=== PATIENT | female | born 1975 | race Caucasian/White ===

== ENCOUNTER 2016-10-20 18:35 | Emergency (ER) | payer OTHER ==
[2016-10-20 18:56] VITALS: BP 111/72
--- NOTE | 2016-10-20 19:21 | UC ---
Cardiac HPI - HPI Summary HPI Summary: The patient comes in today for: 1. Right chest and back pain: Onset: 2 days. Palliative/provocative: Nothing makes it better or worse (position, breathing-- all did not affect it). Movement of the neck and shoulder makes it worse. Quality: Sharp and tight at times. Region: Right upper chest and back. Severity: 3/10 at rest. 5/10 with movement. It was 8/10 with rest. Time: Constant. Associated symptoms: Previous treatment: She took 5 OTC Aleve over the time of 10 hour period. No help. Bleeding problems: No history of bleeding problems in her or her family. No injury. She complains of "a little bit" of shortness of breath. No fever or hemoptysis. Previous disease: She has not had this before. She states that she had a constellation of symptoms that were written up for "stress." She saw multiple specialists who did not find anything for her. Xanax finally made her feel better. Previous heart disease: None. * - History of Current Complaint Chief Complaint: UCGeneralIllness Stated Complaint: RIGHT SHOULDER/CHEST Time Seen by Provider: 10/20/16 18:57 Hx Obtained From: Patient - Allergy/Home Medications Allergies/Adverse Reactions: Allergies Allergy/AdvReac Type Severity Reaction Status Date / Time Sulfa Antibiotics Allergy Nausea Verified 10/20/16 18:45 Home Medications: Home Medications Diphenhydramine HCl (Sleep) [Zzzquil] 25 mg PO BEDTIME 10/20/16 [History Confirmed 10/20/16] lamoTRIgine TAB(*) [Lamictal TAB(*)] 200 mg PO BEDTIME 10/20/16 [History Confirmed 10/20/16] PMH/Surg Hx/FS Hx/Imm Hx Previously Healthy: No - All diagnosis below (-) for her except as listed. Psychological History: Anxiety, Bipolar Disorder Other History Of: Negative For: HIV, Hepatitis B, Hepatitis C, Anticoagulant Therapy - Surgical History Surgical History: None - Family History Known Family History: Negative: Cardiac Disease, Hypertension - Social History Occupation: Employed Full-time Alcohol Use: None Substance Use Type: None Smoking Status (MU): Never Smoked Tobacco - Immunization History Most Recent Influenza Vaccination: NONE Most Recent Tetanus Shot: UTD Review of Systems Constitutional: Negative Skin: Negative Eyes: Negative ENT: Negative Respiratory: Negative Cardiovascular: Chest Pain Gastrointestinal: Negative Genitourinary: Negative Motor: Negative All Other Systems Reviewed And Are Negative: Yes Physical Exam Triage Information Reviewed: Yes Appearance: Well-Appearing, No Pain Distress, Well-Nourished Vital Signs: Initial Vital Signs Temp 99 F 10/20/16 18:47 Pulse 74 10/20/16 18:47 Resp 16 10/20/16 18:47 BP 111/72 10/20/16 18:47 Pulse Ox 99 10/20/16 18:47 Vital Signs Reviewed: Yes Eyes: Positive: Conjunctiva Clear. Negative: Discharge ENT: Positive: Hearing grossly normal. Negative: Pharyngeal erythema, Nasal congestion, Nasal drainage, TM bulging, TM dull, TM red, Tonsillar swelling, Tonsillar exudate Dental: Negative: Gross Decay/Caries @, Dental Fracture @ Neck: Positive: Supple, Nontender, No Lymphadenopathy. Negative: Nuchal Rigidity, Other: - She has reproduction of her posterior/chest pain with neck extension, and turning her head to the right and flexing to the right. There was no marked tenderness to palpation of the right neck musculature. Respiratory: Positive: Chest non-tender, Lungs clear, No respiratory distress, No accessory muscle use. Negative: Crackles, Wheezing Cardiovascular: Positive: RRR, No Murmur Abdomen Description: Positive: Nontender, No Organomegaly, Soft. Negative: Guarding Musculoskeletal: Positive: Strength Intact, ROM Intact, Other: - The patient had also tenderness to palpation of the medial right scapular border which reproduced her chest/posterior pain. Neurological: Positive: Alert, Muscle Tone Normal Psychological: Positive: Age Appropriate Behavior, Consolable Skin: Positive: rashes, breakdown - Assessment/Plan Course Of Treatment: Patient was told that she had right chest/posterior upper back pain related to muscle inflammation. We will start treatment, but she will need to follow up with her primary care provider for assessment of the treatment. She was told that she may need physical therapy. - Differential Diagnoses - Palpitations Differential Diagnosis/HQI/PQRI: Other - muscular. - Clinical Impression Provider Diagnoses: myalgia/muscular strain, right chest. Discharge - Discharge Plan Condition: Stable Disposition: HOME Patient Education Materials: Chest Wall Pain (ED) Referrals: Ming Mcallister MD [Primary Care Provider] - 1 Week (Please see your primary care provider in about one to two weeks to see how well you are doing. If you get worse, please be seen sooner.)
== END 2016-10-20 20:04 | disposition home or self-care (01) ==
LOC: UCCORT 18:35
DX: M79.1 Myalgia (principal); S29.012A Strain of muscle and tendon of back wall of thorax, initial encounter; R07.89 Other chest pain; X58.XXXA Exposure to other specified factors, initial encounter
CPT/HCPCS: 99212; G0463